=== PATIENT | female | born 1960 | race African-American/Black ===

== ENCOUNTER 2016-05-08 15:12 | Emergency (ER) | payer BC ==
[~2016-05-08] VITALS: Ht 157.5 cm; Wt 100.0 kg
[~2016-05-08 15:12] MED LIST: DICL75TA PO; HYDR-3533 PO; NAPR500 PO; SYNT88TA PO; VALS160T6 PO
[2016-05-08 15:14] VITALS: BP 180/109; PULSE 85; RESP 16; TEMP 97.9; O2SAT 95
[2016-05-08] MEDS ORDERED: AMLO5TAB2 PO (16:39)
--- NOTE | 2016-05-08 16:39 | PD ---
HPI Chief Complaint: Hypertension Time Seen by Provider: 16:22 Travel History International Travel<30 days: No Contact w/Intl Traveler<30days: No Traveled to known affect area: No History of Present Illness HPI This is a 55-year-old female who presents to the emergency department with symptoms feeling like she is having high blood pressure. She reports for the past 2 days she's been having some dull headaches around the whole head, moderate severity, with no associated numbness, weakness, difficulty walking or difficulty talking. She denies any vomiting or nausea. She takes valsartan HCTZ once a day and she took her blood pressure medicine today. She doesn't have a blood pressure cuff at home. She called Dr. Moreno but they sent her to the emergency department for evaluation. She denies any chest pain. She has had some right lower extremity pain which feels like a shooting pain from her hip down her leg. She wasn't sure if that might be related. 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 [facility] Past Medical History Cardiovascular Problems: Yes (HTN) Diminished Hearing: No Hypertension: Yes Thyroid Disease: Yes Menopausal: Yes Past Surgical History Section: Yes Gynecologic Surgery: Yes (C- SECTION) Social History Alcohol Use: No Tobacco Use: No Substance Use: No Allergies-Medications (Allergen,Severity, Reaction): Coded Allergies: Wilbert (Verified Allergy, Severe, swelling, 02/01/16) Reported Meds & Prescriptions Reported Meds & Active Scripts Active Lortab (Hydrocodone-Acetaminophen) 5-325 Mg Tab 1 Tab PO Q8HR PRN Naprosyn (Naproxen) 500 Mg Tab 500 Mg PO Q12HR PRN Reported Diclofenac Sodium DR (Diclofenac Sodium) 75 Mg Tabdr 75 Mg PO DAILY Synthroid (Levothyroxine Sodium) 88 Mcg Tab 88 Mcg PO DAILY Valsartan-Hydrochlorothiazide 160-25 Mg Tab 1 Tab PO DAILY Review of Systems Except as stated in HPI: all other systems reviewed are Neg Physical Exam Narrative GENERAL:Well appearing, no acute distress SKIN: Warm and dry. HEAD: Atraumatic. Normocephalic. EYES: Pupils equal and round. No injection or drainage. ENT: Moist mucous membranes NECK: Trachea midline. CARDIOVASCULAR: Regular rate and rhythm. No murmur appreciated. RESPIRATORY: Clear to auscultation. Breath sounds equal bilaterally. GASTROINTESTINAL: Abdomen soft, non-tender, nondistended. MUSCULOSKELETAL: No obvious deformities. NEUROLOGICAL: Awake and alert. No obvious cranial nerve deficits. No dysarthria or aphasia. Moving all extremities. PSYCHIATRIC: Appropriate mood and affect; insight and judgment normal. Data Data Last Documented VS Vital Signs Date Time Temp Pulse Resp B/P Pulse Ox O2 Delivery O2 Flow Rate FiO2 05/08/16 15:14 97.9 85 16 180/109 95 MDM Medical Decision Making Medical Screen Exam Complete: Yes Emergency Medical Condition: Yes Interpretation(s) Afebrile, no tachycardia, hypertensive Differential Diagnosis Hypertensive urgency, hypertensive emergency, stroke Narrative Course This is a 55-year-old female who presents to the emergency department with some intermittent headaches and blurred vision feeling like her blood pressure was high. In the waiting room her blood pressure was 180/109. We rechecked it back in the urgent care area and it was in the 160s. She has no chest pain or acute neurologic symptoms. I think it's reasonable to initiate her on amlodipine. I gave her a dose of 5 mg here in the emergency department and asked her to continue it until she's follows up with her primary care physician next week. She will return if she develops any strokelike symptoms or chest discomfort. Diagnosis Primary Impression: Hypertension Qualified Code: I10 - Essential hypertension Patient Instructions: General Instructions Additional Instructions: If you develop severe chest pain, shortness of breath, sweating, lightheadedness , dizziness or difficulty breathing return to the emergency department immediately. Followup with your primary care physician without fail regarding your blood pressure. Med/Other Pt SpecificInfo: Prescription(s) given Scripts Amlodipine 5 Mg Tab5 Mg PO DAILY #10 TAB Ref 0 Prov:Ana Peralta MD 05/08/16 Disposition: DISCHARGE HOME Condition: Stable Ana Peralta MD May 08, 2016 16:39
[2016-05-08] MEDS ORDERED: amLODIPine BESYLATE 5 MG TAB PO ONE (16:45)
[2016-05-08 17:13] VITALS: BP 121/85; PULSE 76; RESP 20; O2SAT 98
[2016-05-09 15:40] VITALS: BP_SYST 189; BP_SYST 214; BP_DIAS 79; BP_DIAS 84; PULSE 91; RESP 20; TEMP 101.5; O2SAT 91
== END 2016-05-08 18:00 | disposition home or self-care (01) ==
LOC: NEPB 15:12
DX: I10 Essential (primary) hypertension (principal); E03.9 Hypothyroidism, unspecified
CPT/HCPCS: 99282